=== PATIENT | male | born 1955 | race Caucasian/White ===

== ENCOUNTER 2017-07-07 22:17 | Emergency (ER) | payer SELFPAY ==
[2017-07-07 22:28] VITALS: BP 187/112
--- NOTE | 2017-07-07 23:44 | ER Document Report ---
HPI - HPI Pain Level: Denies Notes: Patient is a 61-year-old male with no significant past medical history who presents to the ED complaining of decreased hearing in his right ear that started bothering him about 2 weeks ago. Patient states that he does not have any pain associated. He denies any drug allergies. Denies any other recent illness. He is eating and drinking without any difficulties. He is urinating normally and having normal bowel movements. Denies any headache, fever, head injury, neck pain, URI, sore throat, chest pain, palpitations, syncope, cough, shortness of breath, wheeze, dyspnea, abdominal pain, nausea/vomiting/diarrhea, urinary retention, dysuria, hematuria, dizziness, tinnitus, or rash. - ROS Systems Reviewed and Negative: Yes All other systems reviewed and negative Past Medical History - Social History Smoking Status: Unknown if Ever Smoked Family History: Reviewed & Not Pertinent Past Surgical History: Reports: Hx Orthopedic Surgery Vertical Provider Document - CONSTITUTIONAL Agree With Documented VS: Yes Notes: PHYSICAL EXAMINATION: GENERAL: Well-appearing, well-nourished and in no acute distress. A&Ox4. Answers questions appropriately. Moves comfortably w/o notable distress HEAD: Atraumatic, normocephalic. EYES: Pupils equal round and reactive to light, extraocular movements intact, sclera anicteric, conjunctiva are normal. ENT: Rt EAC has cerumen impaction very deep in the canal that appears very hard and dark. no discharge. Lt EAC also has cerumen impaction. Non-tender to palp. TM's intact b/l without erythema, fluid, or perforation. Nares patent and without discharge. oropharynx no erythema without exudates. No tonsilar hypertrophy without erythema or exudate. No palatine shift. Uvula midline. No tongue protrusion. No drooling, hoarseness, or airway compromise. Moist mucous membranes. No sinus tenderness. No mastoid tenderness/erythema. Mouth: poor dentition throughout. NECK: Normal range of motion, supple without lymphadenopathy. No rigidity/ meningismus. LUNGS: Breath sounds clear to auscultation bilaterally and equal. No wheezes rales or rhonchi. No retractions HEART: Regular rate and rhythm without murmurs, rubs, gallops. PSYCH: Normal mood, normal affect. SKIN: Warm, Dry, normal turgor, no rashes or lesions noted. - INFECTION CONTROL TRAVEL OUTSIDE OF THE [place] IN LAST 30 DAYS: No Course - Re-evaluation Re-evalutation: 07/07/17 23:41 Patient is an afebrile, well-hydrated, 61-year-old male who presents to the ED with decreased hearing to his right ear which I suspect is secondary to the cerumen impaction. Vitals are acceptable. PE is otherwise unremarkable. The cerumen appears very hard and thickened and I do not feel that it will be adequately removed here with our irrigation by syringe. I believe patient will need to use Debrox drops for a few days before seeing a provider for cerumen disimpaction. Patient has no other symptoms of pain or discomfort. I will send him home with a prescription for Debrox. I will also give him a referral to ENT for cerumen disimpaction. Patient does not have a primary care provider , advised that he establish with one this week. Return to the ED with any worsening/concerning symptoms otherwise as reviewed discharge. Patient is in agreement. - Vital Signs Vital signs: Temp Pulse Resp BP Pulse Ox 97.9 F 92 16 187/112 H 96 07/07/17 22:25 07/07/17 22:25 07/07/17 22:25 07/07/17 22:25 07/07/17 22:25 Discharge - Discharge Clinical Impression: Impacted cerumen of both ears Condition: Stable Disposition: HOME, SELF-CARE Instructions: Cerumen Impaction ([facility]) Additional Instructions: Maintain adequate fluid intake Use drops as directed tylenol/ibuprofen as needed Humidified air may help Wash your hands regularly Establish with a PCM in 3-5 days for a recheck Schedule an appointment with ENT for further evaluation and management Return to the ED with any fever, worsening pain, chest pain, palpitations, syncope, worsening DUENAS, neck pain/stiffness, shortness of breath, wheezing, drooling, trouble swallowing/breathing, abdominal pain, n/v/d, rash, or worsening/concerning symptoms otherwise. Prescriptions: Carbamide Peroxide [Debrox] 5 - 10 drop OT TID #15 ml Forms: Elevated Blood Pressure Referrals: [facility] [Provider Group] - Follow up as needed MIRTA DE LA ROSA DO [ASSOCIATE] - Follow up in 1 week [facility] [Provider Group] - Follow up in 3-5 days [facility] [Provider Group]
== END 2017-07-07 23:59 | disposition home or self-care (01) ==
LOC: ER 22:17
DX: H61.23 Impacted cerumen, bilateral (principal)
CPT/HCPCS: 99282